=== PATIENT | female | born 1985 | race Caucasian/White ===

== ENCOUNTER 2020-09-20 17:06 | Outpatient (REF) | payer OTHER, SELFPAY ==
--- NOTE | 2020-09-20 16:00 | PAPFT_PTH ---
PATIENT: Laurie Rothman LOC: [facility] U#:[id number] AGE/SX: 35/F ROOM: RE09/20/[address]: Ana Post : 1985 BED: DIS: 09/20/2020 SPEC #: [id number] RECD: 09/21/20 12:46 STATUS: LEIDY RECasimiro #: [id number] SONY: 09/20/20 16:[address]: Ana Post DEPT: [facility] Cytology RECD BY: Tati Pruett Tissues: 1 - CX/ENDOCX FOR PAP SMEARS Procedures: PAP THIN PREP/[facility] Screening HPV DNA PROBE Comments: [id number]
[2020-09-20 21:30] LABS: Calculated LDL 140 mg/dL (<100); Cholesterol 252 mg/dL (<200); HDL Cholesterol 88 mg/dL (40-60); Hemoglobin A1C 5.4 % (<5.7); Triglyceride 122 mg/dL (<150)
== END 2020-09-20 17:07 | disposition home or self-care (01) ==
LOC: NCHCN 17:06
PROVIDERS: PCP Family Medicine; Visit Provider Family Medicine
DX: Z00.00 Encounter for general adult medical examination without abnormal findings (principal); Z13.1 Encounter for screening for diabetes mellitus; Z13.220 Encounter for screening for lipoid disorders; E66.3 Overweight; Z12.4 Encounter for screening for malignant neoplasm of cervix; Z87.410 Personal history of cervical dysplasia; Z11.51 Encounter for screening for human papillomavirus (HPV)
CPT/HCPCS: 80061; 88142; 83036; 87624